=== PATIENT | female | born 1960 | race Caucasian/White ===

== ENCOUNTER → 2016-07-06 | Outpatient (CLI) | payer BC ==
[~2016-07-06] VITALS: Ht 157.5 cm; Wt 83.9 kg
[~2016-07-06] MED LIST: ALBU17IN INH; ALLE180T33 PO; BUPR10TASR PO; CELE20TA PO; COMB0.2S OU; ELES0.05 OU; EPIP0.3I2 IM; LIDOCAINE 2% INJ 100 MG/5 ML SDV (FOR ANES.) As Ordered ONE; NS 1,000 ML IV SCH; OMEG100011 PO; PROPOFOL 200 MG/20 ML VIAL As Ordered ONE; REFROIN OU; SING10TA32 PO; SOOTDRO2 OU; TRAV04OPD OU; VITA1CAP7 PO; VITATAB11 PO
--- NOTE | 2016-07-06 12:27 | ROOR ---
Patient Name: Shanika Castillo Procedure Date: 07/06/2016 12:01 PM Date of : 1960 Age: 55 Room: [facility] Gender: Female Note Status: Finalized Procedure: Colonoscopy Indications: Screening for colorectal malignant neoplasm Providers: Grady LOOMIS MD Referring MD: Swathi Paige NP Requesting Provider: Medicines: Monitored Anesthesia Care Complications: No immediate complications. Procedure: Pre-Anesthesia Assessment: - The heart rate, respiratory rate, oxygen saturations, blood pressure, adequacy of pulmonary ventilation, and response to care were monitored throughout the procedure. The Colonoscope was introduced through the anus and advanced to the cecum, identified by appendiceal orifice and ileocecal valve. The colonoscopy was performed without difficulty. The patient tolerated the procedure well. The quality of the bowel preparation was good. Findings: The perianal and digital rectal examinations were normal. Three sessile polyps were found in the ascending colon and cecum. The polyps were 3 to 8 mm in size. These polyps were removed with a piecemeal technique using a cold snare. Resection and retrieval were complete. The exam was otherwise normal throughout the examined colon. Impression: - Three 3 to 8 mm polyps in the ascending colon and in the cecum, removed piecemeal using a cold snare. Resected and retrieved. - The examination was otherwise normal on direct and retroflexion views. Recommendation: - Telephone endoscopist for pathology results in 2 weeks. - If the pathology report reveals adenomatous tissue, then repeat the colonoscopy for adenoma surveillance in 3 years. - If the pathology report indicates hyperplastic polyp, then repeat colonoscopy for screening purposes in 10 years. Grady Loomis MD Grady LOOMIS MD 07/06/2016 12:26:56 PM This report has been signed electronically. Number of Addenda: 0 Note Initiated On: 07/06/2016 12:01 PM Estimated Blood Loss: Estimated blood loss: none.
[2016-07-06 12:52] VITALS: BP 108/62
== END | disposition home or self-care (01) ==
LOC: M OPP 10:11
PROVIDERS: ATTEND Internal Medicine Gastroenterology
DX: Z12.11 Encounter for screening for malignant neoplasm of colon (principal); D12.2 Benign neoplasm of ascending colon; F32.9 Major depressive disorder, single episode, unspecified; H40.009 Preglaucoma, unspecified, unspecified eye; H04.123 Dry eye syndrome of bilateral lacrimal glands; J45.909 Unspecified asthma, uncomplicated; Z80.8 Family history of malignant neoplasm of other organs or systems; Z80.3 Family history of malignant neoplasm of breast; Z88.5 Allergy status to narcotic agent; Z79.899 Other long term (current) drug therapy

== ENCOUNTER → 2018-08-31 | Outpatient (REF) | payer BC ==
[~2018-08-31] MED LIST changes: +D-3-50003 PO; -LIDOCAINE 2% INJ 100 MG/5 ML SDV (FOR ANES.) As Ordered ONE; -NS 1,000 ML IV SCH; -PROPOFOL 200 MG/20 ML VIAL As Ordered ONE; -VITA1CAP7 PO
== END ==
LOC: M LAB LCGH 12:02
PROVIDERS: ATTEND Nurse Practitioner Family
DX: D48.9 Neoplasm of uncertain behavior, unspecified (principal)

== ENCOUNTER → 2020-04-18 | Outpatient (CLI) | payer BC ==
[~2020-04-18] MED LIST changes: +ALLE10TA62 PO; +CEQU0.09 OU; +FLON27.5 NARES; +VITA100T59 PO; +VITA500T10 PO; +ZADI1DRO OU; +ZINC1TAB2 PO
== END ==
LOC: M LABSMTC 10:43
PROVIDERS: ATTEND Anesthesiology
DX: Z01.812 Encounter for preprocedural laboratory examination (principal); Z20.822 Contact with and (suspected) exposure to COVID-19

== ENCOUNTER 2020-04-23 08:04 | Day surgery (SDC) | payer BC ==
[~2020-04-23] VITALS: Ht 157.5 cm; Wt 98.0 kg
[~2020-04-23 08:04] MED LIST changes: +NS 1,000 ML IV ONE
[2020-04-23] MEDS ORDERED: propofoL 200 MG/20 ML VIAL As Ordered ONE (08:16)
[2020-04-23] MEDS ORDERED: LIDOCAINE 2% 100MG/5ML SDV (FOR ANES.) As Ordered ONE (08:16)
[2020-04-23] MEDS ORDERED: ePHEDrine SULFATE 25 MG/5 ML(5MG/ML) SYRINGE As Ordered ONE (08:22)
--- NOTE | 2020-04-23 09:56 | ROOR ---
Patient Name: Shanika Castillo Procedure Date: 04/23/2020 9:24 AM Date of : 1960 Age: 59 Room: [facility] Gender: Female Note Status: Finalized Procedure: Colonoscopy Indications: High risk colon cancer surveillance: Personal history of colonic polyps, Last colonoscopy: June 2016 Providers: Grady LOOMIS MD Referring MD: Deedee BREWER MD Requesting Provider: Medicines: Monitored Anesthesia Care Complications: No immediate complications. Procedure: Pre-Anesthesia Assessment: - The heart rate, respiratory rate, oxygen saturations, blood pressure, adequacy of pulmonary ventilation, and response to care were monitored throughout the procedure. - The heart rate, respiratory rate, oxygen saturations, blood pressure, adequacy of pulmonary ventilation, and response to care were monitored throughout the procedure. The Colonoscope was introduced through the anus and advanced to the cecum, identified by appendiceal orifice and ileocecal valve. The colonoscopy was performed without difficulty. The patient tolerated the procedure well. The quality of the bowel preparation was good. Findings: The perianal and digital rectal examinations were normal. Two sessile polyps were found in the ascending colon. The polyps were 3 to 6 mm in size. These polyps were removed with a cold snare. Resection and retrieval were complete. Small Internal Hemorrhoids. The exam was otherwise without abnormality on direct and retroflexion views. Impression: - Two 3 to 6 mm polyps in the ascending colon, removed with a cold snare. Resected and retrieved. - Small Internal Hemorrhoids. - The examination was otherwise normal on direct and retroflexion views. Recommendation: - Repeat colonoscopy in 5 years for surveillance. Procedure Code(s): --- Professional --- 29217, Colonoscopy, flexible; with removal of tumor(s), polyp(s), or other lesion(s) by snare technique Diagnosis Code(s): --- Professional --- Z86.010, Personal history of colonic polyps K63.5, Polyp of colon CPT copyright 2019 [employer]. All rights reserved. The codes documented in this report are preliminary and upon cableman review may be revised to meet current compliance requirements. Grady Loomis MD Grady LOOMIS MD 04/23/2020 9:55:21 AM Electronically signed by Grady LOOMIS MD Number of Addenda: 0 Note Initiated On: 04/23/2020 9:24 AM Estimated Blood Loss: Estimated blood loss: none.
[2020-04-23 10:15] VITALS: BP 118/82
== END 2020-04-23 10:42 | disposition home or self-care (01) ==
LOC: M OPP 08:04
PROVIDERS: ATTEND Internal Medicine Gastroenterology
DX: Z12.11 Encounter for screening for malignant neoplasm of colon (principal); Z86.010 Personal history of colon polyps; K63.5 Polyp of colon; K64.8 Other hemorrhoids

== ENCOUNTER → 2023-02-09 | Day surgery (SDC) | payer BC ==
[~2023-02-09] VITALS: Ht 157.5 cm; Wt 91.6 kg
[~2023-02-09] MED LIST changes: +BIOT10TA2 PO; +BUPR150T12 PO; +CITA10TA7 PO; +EQL50TAB2 PO; +GALZ50CA PO; +LIDOCAINE 2% 100MG/5ML SDV (FOR ANES.) As Ordered ONE; +MONT-5 PO; +OMEG1CAP94 PO; -SING10TA32 PO; +VITA100093 PO; +XALA0.007; +propofoL 500 MG/50 ML VIAL As Ordered ONE
[2023-02-09 10:15] VITALS: TEMP 98
[2023-02-09 10:32] VITALS: BP 116/66; O2SAT 98
== END | disposition home or self-care (01) ==
LOC: M OPP 08:05
PROVIDERS: ATTEND Internal Medicine Gastroenterology
DX: K92.1 Melena (principal); K64.8 Other hemorrhoids; D12.4 Benign neoplasm of descending colon; J45.909 Unspecified asthma, uncomplicated; F32.A Depression, unspecified; Z80.3 Family history of malignant neoplasm of breast; Z80.0 Family history of malignant neoplasm of digestive organs